=== PATIENT | female | born 1935 | race Caucasian/White ===

== ENCOUNTER 2018-03-23 19:24 | Inpatient (IN) ==
--- NOTE | 2018-03-23 19:42 | ED ---
HPI General Chief Complaint: Fall Stated Complaint: fall Time Seen by Provider: 03/23/18 19:33 Source: patient Mode of arrival: ambulatory Limitations: no limitations History of Present Illness HPI Narrative: 82 YO F with PMH of HTN, HLD, osteoporosis presents to the ED via EMS after falling from a step ladder. Patient states that she was one step above the floor, lost her balance and fell on her left hip on the tile floor. She denies hitting her head or LOC. She takes an aspirin daily. On presentation she endorses 3/10 pain in the left groin. Sharp in quality, worsened by motion, improved by immobilization. The patient received 4 mg Morphine by EMS before arrival. Related Data Home Medications Medication Instructions Recorded Confirmed amlodipine 5 mg PO DAILY 03/23/18 03/23/18 aspirin 81 mg PO DAILY 03/23/18 03/23/18 atorvastatin 10 mg PO DAILY 03/23/18 03/23/18 calcium carbonate-vitamin D3 500 mg PO DAILY 03/23/18 03/23/18 [Calcium 500 + D] levothyroxine 88 mcg PO DAILY 03/23/18 03/23/18 metoprolol tartrate 12.5 mg PO DAILY 03/23/18 03/23/18 Allergies Allergy/AdvReac Type Severity Reaction Status Date / Time No Known Allergies Allergy Verified 03/23/18 19:31 Review of Systems ROS: all other systems reviewed are negative PMFSH Social History Social History Substance History: No History of Abuse Second Hand Smoke Exposure: Yes Smoking Status: Current every day smoker Tobacco Type: Cigarettes How Often Do You Have a Drink Containing Alcohol: 2 to 3 times a week Recent Travel in [facility] within the Last 8 Weeks: No Recent Out of Country Travel within the Last 8 Weeks: No Exam Narrative Exam Narrative: GENERAL: Well-nourished, well-developed white female laying on her right side in the stretcher in no acute distress. SKIN: Focused skin assessment warm/dry. HEAD: Atraumatic. Normocephalic. EYES: Pupils equal and round. No scleral icterus. No injection or drainage. ENT: No nasal bleeding or discharge. Mucous membranes pink and moist. NECK: Trachea midline. No JVD. CARDIOVASCULAR: Regular rate and rhythm. No murmur appreciated. RESPIRATORY: No accessory muscle use. Clear to auscultation. Breath sounds equal bilaterally. GASTROINTESTINAL: Abdomen soft, non-tender, nondistended. Hepatic and splenic margins not palpable. MUSCULOSKELETAL: No obvious deformities. No clubbing. No cyanosis. No edema. FOCUSED LEFT LOWER EXTREMITY EXAM: 2+ DP pulse. Tender to palpation in the anterolateral aspect of the hip. Leg is slightly foreshortened. No external rotation. Patient is able to wiggle the toes and flex and extend the ankle. Neurovascular intact distally. NEUROLOGICAL: Awake and alert. No obvious cranial nerve deficits. Motor grossly within normal limits. Normal speech. PSYCHIATRIC: Appropriate mood and affect; insight and judgment normal. Course Initial Documented Vital Signs Pulse Rate 59 L 03/23/18 19:32 Respiratory Rate 16 03/23/18 19:32 Blood Pressure 186/72 H 03/23/18 19:32 Pulse Oximetry 100 03/23/18 19:32 Last Documented Vital Signs Pulse Rate 66 03/23/18 22:04 Respiratory Rate 18 03/23/18 22:04 Blood Pressure 162/70 H 03/23/18 22:04 Pulse Oximetry 95 03/23/18 22:04 Medical Decision Making [facility] Narrative Medical decision making narrative: 82-year-old female with PMH of HTN, HLD, osteoporosis presents to the ED by EMS after fall from the first step on a ladder. Patient states that she fell onto the left hip, denies hitting her head or loss of consciousness. On exam she is lying on the right side with her left hip slightly flexed. She has tenderness to palpation of the anterior lateral aspect of the hip. Neurovascular intact distally. X-ray reveals comminuted intertrochanteric fracture with varus angulation. Basic lab work ordered and pending. Dunne catheter was placed. Patient was placed in Kaba's traction. I spoke with Dr. Ruvalcaba, who plans surgery tomorrow. I discussed the results and plan with the patient and her family who are agreeable to care plan. I spoke with Dr. Baer who agrees to accept the patient to the medicine service. Please see orthopedic and medicine notes for disposition Medical Screen Exam Complete: Yes Emergency Medical Condition: Yes Differential Diagnosis Differential Diagnosis: Hip fracture versus dislocation versus fall from standing versus other Lab Data Result diagrams: 03/23/18 20:34 03/23/18 20:34 Lab Results 03/23/18 03/23/18 03/23/18 Range/Units 20:34 20:34 20:34 WBC 16.7 H (4.0-11.0) th/mm3 RBC 3.61 L (4.00-5.30) mil/mm3 Hgb 11.5 L (11.6-15.3) gm/dL Hct 33.9 L (35.0-46.0) % MCV 94.1 (80.0-100.0) fL MCH 32.0 (27.0-34.0) pg MCHC 34.0 (32.0-36.0) % RDW 13.0 (11.6-17.2) % Plt Count 234 (150-450) th/mm3 MPV 8.7 (7.0-11.0) fL Prelim Diff (Auto) Slide review pending Neut % (Auto) 86.1 H (16.0-70.0) % Lymph % (Auto) 8.1 L (9.0-44.0) % [place] % (Auto) 5.5 (0.0-8.0) % Eos % (Auto) 0.1 (0.0-4.0) % Baso % (Auto) 0.2 (0.0-2.0) % Neut # (Auto) 14.4 H (1.8-7.7) th/mm3 Lymph # (Auto) 1.4 (1.0-4.8) th/mm3 [place] # (Auto) 0.9 (0.0-0.9) th/mm3 Eos # (Auto) 0.0 (0.0-0.4) th/mm3 Baso # (Auto) 0.0 (0.0-0.2) th/mm3 WBC Differential Manual diff final Seg Neuts % (Manual) 78 H (16-70) % Band Neuts % (Manual) 8 H (0-6) % Lymphocytes % (Manual) 8 L (9-44) % Monocytes % (Manual) 6 (0-8) % Abs Neuts (Manual) 14.4 H (1.8-7.7) th/mm3 Differential Comment . Platelet Estimate Normal (Normal) Platelet Morphology Normal (Normal) RBC Morphology Normal (Normal) PT 11.4 (9.8-11.6) sec INR 1.1 Ratio APTT 25.5 (23.4-31.7) sec Sodium 139 (136-145) meq/L Potassium 3.7 (3.5-5.1) meq/L Chloride 103 (98-107) meq/L Carbon Dioxide 26.9 (21.0-32.0) meq/L Anion Gap 9 (5-15) meq/L BUN 17 (7-18) mg/dL Creatinine 0.74 (0.50-1.00) mg/dL Estimated GFR 75 L (>89) mL/min Random Glucose 113 H (74-106) mg/dL Calcium 10.1 (8.5-10.1) mg/dL Total Bilirubin 0.6 (0.2-1.0) mg/dL AST 23 (15-37) U/L ALT 22 (10-53) U/L Alkaline Phosphatase 106 (45-117) U/L Total Protein 6.9 (6.4-8.2) g/dL Albumin 3.9 (3.4-5.0) g/dL Urine Color (Yellw/Straw) Urine Clarity (Clear) Urine pH (5.0-8.5) Ur Specific [place] [employer] (1.002-1.035) Urine Protein (Neg-Trace) mg/dL Urine Glucose (UA) (Negative) mg/dL Urine Ketones (Negative) mg/dL Urine Occult Blood (Negative) Urine Nitrate (Negative) Urine Bilirubin (Negative) Urine Urobilinogen (Less than 2) mg/dL Ur Leukocyte Esterase (Negative) Urine RBC (0-3) /hpf Amorphous Sediment (None) /hpf Urine Bacteria (None) /hpf Urine Mucus (Occasional) /lpf Ur Microscopic Review Blood Type Blood Type Recheck Antibody Screen 03/23/18 03/23/18 Range/Units 20:34 21:17 WBC (4.0-11.0) th/mm3 RBC (4.00-5.30) mil/mm3 Hgb (11.6-15.3) gm/dL Hct (35.0-46.0) % MCV (80.0-100.0) fL MCH (27.0-34.0) pg MCHC (32.0-36.0) % RDW (11.6-17.2) % Plt Count (150-450) th/mm3 MPV (7.0-11.0) fL Prelim Diff (Auto) Neut % (Auto) (16.0-70.0) % Lymph % (Auto) (9.0-44.0) % [place] % (Auto) (0.0-8.0) % Eos % (Auto) (0.0-4.0) % Baso % (Auto) (0.0-2.0) % Neut # (Auto) (1.8-7.7) th/mm3 Lymph # (Auto) (1.0-4.8) th/mm3 [place] # (Auto) (0.0-0.9) th/mm3 Eos # (Auto) (0.0-0.4) th/mm3 Baso # (Auto) (0.0-0.2) th/mm3 WBC Differential Seg Neuts % (Manual) (16-70) % Band Neuts % (Manual) (0-6) % Lymphocytes % (Manual) (9-44) % Monocytes % (Manual) (0-8) % Abs Neuts (Manual) (1.8-7.7) th/mm3 Differential Comment Platelet Estimate (Normal) Platelet Morphology (Normal) RBC Morphology (Normal) PT (9.8-11.6) sec INR Ratio APTT (23.4-31.7) sec Sodium (136-145) meq/L Potassium (3.5-5.1) meq/L Chloride (98-107) meq/L Carbon Dioxide (21.0-32.0) meq/L Anion Gap (5-15) meq/L BUN (7-18) mg/dL Creatinine (0.50-1.00) mg/dL Estimated GFR (>89) mL/min Random Glucose (74-106) mg/dL Calcium (8.5-10.1) mg/dL Total Bilirubin (0.2-1.0) mg/dL AST (15-37) U/L ALT (10-53) U/L Alkaline Phosphatase (45-117) U/L Total Protein (6.4-8.2) g/dL Albumin (3.4-5.0) g/dL Urine Color Yellow (Yellw/Straw) Urine Clarity Cloudy H (Clear) Urine pH 7.0 (5.0-8.5) Ur Specific [place] [employer] 1.011 (1.002-1.035) Urine Protein Negative (Neg-Trace) mg/dL Urine Glucose (UA) Negative (Negative) mg/dL Urine Ketones Trace H (Negative) mg/dL Urine Occult Blood Negative (Negative) Urine Nitrate Negative (Negative) Urine Bilirubin Negative (Negative) Urine Urobilinogen Less than 2 (Less than 2) mg/dL Ur Leukocyte Esterase Negative (Negative) Urine RBC 1 (0-3) /hpf Amorphous Sediment Occasional H (None) /hpf Urine Bacteria Occasional H (None) /hpf Urine Mucus Few H (Occasional) /lpf Ur Microscopic Review Not Reportable Blood Type O Positive Blood Type Recheck Required Antibody Screen Negative Imaging Data Radiologist's impression: Hip X-Ray 03/23/18 19:37 CONCLUSION: Comminuted intratrochanteric fracture with varus angulation. Chest X-Ray 03/23/18 20:07 CONCLUSION: Interface in the upper lateral left chest probably represents a skinfold. Recommend performing an expiratory view of the chest to exclude pneumothorax. Chest X-Ray 03/23/18 20:56 CONCLUSION: No evidence of pneumothorax. ECG Data Attestation: I personally reviewed and interpreted this ECG as follows: Interpretation: EKG rate 59, sinus bradycardia. HI interval 151, QRS 92, QTc [address] changes. Reviewed by Dr. Dumont. Discharge Plan Discharge Disposition Patient Disposition: 30 Still Patient Physicians Team ED Provider: Param Dumont ED Midlevel Provider: Erika Nails Primary Care Provider: Josiah Bush Attending Provider: India Baer Other Providers: Enedina Ruvalcaba ; Joaquin Nuñez Discharge Interventions Interventions: Vital Signs Last Done: 03/23/18 22:04 Status ED Status: Admitted Patient
[2018-03-23] MEDS ORDERED: Morphine Sulfate Inj 8 MG/ML Vial IV.PUSH ONE (19:58)
--- NOTE | 2018-03-23 20:06 | XR ---
EXAM DATE: 03/23/2018 8:02 PM EST AGE/SEX: 82 years / Female INDICATIONS: Trauma. Pain. Patient fell at home today. Pain left hip. CLINICAL DATA: This is the patient's initial encounter. Patient reports that signs and symptoms have been present for 1 day and indicates a pain score of 10/10. MEDICAL/SURGICAL HISTORY: Alzheimer's disease. Non-responsive. COMPARISON: No prior exams available for comparison. FINDINGS: There is an intertrochanteric fracture with varus angulation and a butterfly fragment arising from th e lesser trochanter. The bony acetabulum appears grossly intact. Femoral head is situated within the acetabulum. CONCLUSION: Comminuted intratrochanteric fracture with varus angulation. Electronically signed by: Jak Duran MD 03/23/2018 8:05 PM EST
[2018-03-23] MEDS ORDERED: Morphine Inj 4 MG/ML Vial IV.PUSH ONE (20:07)
--- NOTE | 2018-03-23 20:38 | XR ---
EXAM DATE: 03/23/2018 8:32 PM EST AGE/SEX: 82 years / Female INDICATIONS: Pre op. Evaluate for pneumothorax, pneumonia, or any communicable diseases. CLINICAL DATA: This is the patient's initial encounter. Patient reports that signs and symptoms have been present for 1 day and indicates a pain score of 0/10. MEDICAL/SURGICAL HISTORY: None. None. COMPARISON: No prior exams available for comparison. FINDINGS: A single AP view of the chest demonstrates the lungs to be symmetrically aerated without evidence of mass, infiltrate or effusion. There is a vertical curvilinear interface projecting over the lateral l eft upper chest with lung markings peripheral to the interface suggesting a skin fold. The cardiomedi astinal contours are unremarkable. Osseous structures are intact. CONCLUSION: Interface in the upper lateral left chest probably represents a skinfold. Recommend performing an exp iratory view of the chest to exclude pneumothorax. Electronically signed by: Jak Duran MD 03/23/2018 8:36 PM EST
[2018-03-23 21:08] LABS: Baso % (Auto) 0.2 % (0.0-2.0); Eos % (Auto) 0.1 % (0.0-4.0); Hematocrit 33.9 % (35.0-46.0); Hemoglobin 11.5 gm/dL (11.6-15.3); Lymph # (Auto) 1.4 th/mm3 (1.0-4.8); Lymph % (Auto) 8.1 % (9.0-44.0); Mean Corpuscular Volume 94.1 fL (80.0-100.0); Mean Platelet Volume 8.7 fL (7.0-11.0); Mono # (Auto) 0.9 th/mm3 (0.0-0.9); Mono % (Auto) 5.5 % (0.0-8.0); Neut # (Auto) 14.4 th/mm3 (1.8-7.7); Neut % (Auto) 86.1 % (16.0-70.0); Platelet Count 234 th/mm3 (150-450); Red Blood Count 3.61 mil/mm3 (4.00-5.30); White Blood Count 16.7 th/mm3 (4.0-11.0)
[2018-03-23 21:20] LABS: Activated Partial Thrombo Time 25.5 sec (23.4-31.7); INR 1.1 Ratio; Prothrombin Time 11.4 sec (9.8-11.6)
[2018-03-23 21:33] LABS: Albumin 3.9 g/dL (3.4-5.0); Anion Gap 9 meq/L (5-15); Aspartate Aminotransferase 23 U/L (15-37); Blood Urea Nitrogen 17 mg/dL (7-18); Calcium 10.1 mg/dL (8.5-10.1); Carbon Dioxide 26.9 meq/L (21.0-32.0); Chloride 103 meq/L (98-107); Glomerular Filtration Rate 75 mL/min (>89); Glucose,Random 113 mg/dL (74-106); Potassium 3.7 meq/L (3.5-5.1); Sodium 139 meq/L (136-145)
[2018-03-23 21:35] LABS: Alanine Aminotransferase 22 U/L (10-53)
[2018-03-23 21:36] LABS: Lymphocytes 8 % (9-44); Monocytes 6 % (0-8); Platelet Estimate Normal (Normal); Platelet Morphology Normal (Normal); RBC Morphology Normal (Normal)
[2018-03-23 21:37] LABS: Alkaline Phosphatase 106 U/L (45-117); Total Protein 6.9 g/dL (6.4-8.2)
--- NOTE | 2018-03-23 21:45 | XR ---
EXAM DATE: 03/23/2018 9:42 PM EST AGE/SEX: 82 years / Female INDICATIONS: Evaluate for pneumonia, pneumothorax, or communicable disease. Pre-op hip surgery. CLINICAL DATA: This is the patient's subsequent encounter. Patient reports that signs and symptoms h ave been present for 1 day and indicates a pain score of 0/10. MEDICAL/SURGICAL HISTORY: . Leaky heart valve. Smoker. None. COMPARISON: [facility], CHEST 1V SINGLE AP, 03/23/2018. . FINDINGS: Mild patient rotation towards the left. Lungs are symmetrically aerated. The examination is performed in expiration and there is no evidence of pneumothorax. The heart is normal in size. Both hemidiaphr agms well delineated. CONCLUSION: No evidence of pneumothorax. Electronically signed by: Jak Duran MD 03/23/2018 9:44 PM EST
[2018-03-23 21:56] LABS: Amorphous Sediment,Urine Occasional /hpf; Bacteria,Urine Occasional /hpf; Bilirubin,Urine Negative (Negative); Clarity,Urine Cloudy (Clear); Color,Urine Yellow (Yellw/Straw); Glucose,Urine (UA) Negative (Negative); Leukocyte Esterase,Urine Negative (Negative); Mucus,Urine Few /lpf (Occasional); Nitrite,Urine Negative (Negative); Specific Gravity,Urine 1.011 (1.002-1.035)
[2018-03-23] MEDS ORDERED: ceFAZolin 2 GM Premix Inj 2 GM/50 ML PIGGYBACK IV.SIG PRN (23:09)
--- NOTE | 2018-03-23 23:19 | P.CONOP ---
[facility] Orthopedics Consult Note - [facility] Consult date: 03/23/18 Requesting physician: Param Dumont Chief complaint: Left Hip Fracture Narrative: 82 year old female who fell from a step ladder while trying to hang curtains earlier today, landing on the left hip. She was unable to bear weight on the leg and was brought to the ED where imaging revealed an intertrochanteric femur fracture. She denies other injury. Pain is improved with morphine and worse with any movement of the hip. She denies numbness or tingling. Review of Systems All other systems reviewed negative except as stated in HPI PMFSH - History History Provided By: Patient - Medical History Medical History: Medical History (Last Reviewed 03/23/18 @ 23:14 by Enedina Ruvalcaba MD) Aortic regurgitation Arthritis Emphysema of lung Hypercholesteremia Hypothyroidism Osteoporosis Uterine prolapse - Social History I have reviewed the patient's Social History: Yes - Tobacco History Second Hand Smoke Exposure: Yes Tobacco Use In Past 30 Days: Yes Smoking Status: Current every day smoker Tobacco Type: Cigarettes - Alcohol History How Often Do You Have a Drink Containing Alcohol: 2 to 3 times a week - Substance Use History Substance History: No History of Abuse - Travel History Recent Travel in the [place] Within the Last 8 Weeks: No Recent Travel Out of the Country Within the Last 8 Weeks: No - Immunization History Tetanus Immunization: >5 Years Medications and Allergies Active Medications: Active Medications Cefazolin Sodium/Dextrose (Ancef 2 Gm Premix Inj) 2 gm in 50 mls @ 100 mls/hr IV.SIG HUMAN RESOURCES TEMP PRN PRN Reason: surgical prophylaxis Sodium Chloride (Ns Flush) 2 ml IV.FLUSH UNSCH PRN PRN Reason: FLUSH AFTER USING IV ACCESS Allergies Allergy/AdvReac Type Severity Reaction Status Date / Time No Known Allergies Allergy Verified 03/23/18 19:31 Home Medications Medication Instructions Recorded Confirmed Type amlodipine 5 mg PO DAILY 03/23/18 03/23/18 History aspirin 81 mg PO DAILY 03/23/18 03/23/18 History atorvastatin 10 mg PO DAILY 03/23/18 03/23/18 History calcium carbonate-vitamin D3 500 mg PO DAILY 03/23/18 03/23/18 History [Calcium 500 + D] levothyroxine 88 mcg PO DAILY 03/23/18 03/23/18 History metoprolol tartrate 12.5 mg PO DAILY 03/23/18 03/23/18 History Exam Vital signs: Vital Signs 03/23/18 19:32 03/23/18 19:37 03/23/18 22:04 Pulse Rate 59 L 58 L 66 Respiratory Rate 16 16 18 Blood Pressure 186/72 H 186/72 H 162/70 H Pulse Oximetry 100 100 95 Intake & Output 03/23/18 03/23/18 03/24/18 06:59 18:59 06:59 Weight 48.988 kg - Constitutional no acute distress - Routine HEENT Exam Head: Present: normocephalic, atraumatic - Routine Neck Exam Present: supple - Routine Respiratory Exam Absent: accessory muscle use - Routine Cardiovascular Exam Present: RRR - Routine Extremities Exam Comments: Left leg in sorensen's traction. Slightly tender to palpation of the left hip. No other areas of tenderness. She is able to wiggle the toes and has intact sensation throughout. Palpable DP pulse. Other extremities unremarkable. - Routine Neurological Exam Present: alert, oriented X3 Results - Labs Result Diagrams: 03/23/18 20:34 03/23/18 20:34 Labs: Laboratory Results - last 24 hr 03/23/18 03/23/18 03/23/18 20:34 20:34 20:34 WBC 16.7 H RBC 3.61 L Hgb 11.5 L Hct 33.9 L MCV 94.1 MCH 32.0 MCHC 34.0 RDW 13.0 Plt Count 234 MPV 8.7 Prelim Diff (Auto) Slide review pending Neut % (Auto) 86.1 H Lymph % (Auto) 8.1 L [place] % (Auto) 5.5 Eos % (Auto) 0.1 Baso % (Auto) 0.2 Neut # (Auto) 14.4 H Lymph # (Auto) 1.4 [place] # (Auto) 0.9 Eos # (Auto) 0.0 Baso # (Auto) 0.0 WBC Differential Manual diff final Seg Neuts % (Manual) 78 H Band Neuts % (Manual) 8 H Lymphocytes % (Manual) 8 L Monocytes % (Manual) 6 Abs Neuts (Manual) 14.4 H Differential Comment . Platelet Estimate Normal Platelet Morphology Normal RBC Morphology Normal PT 11.4 INR 1.1 APTT 25.5 Sodium 139 Potassium 3.7 Chloride 103 Carbon Dioxide 26.9 Anion Gap 9 BUN 17 Creatinine 0.74 Estimated GFR 75 L Random Glucose 113 H Calcium 10.1 Total Bilirubin 0.6 AST 23 ALT 22 Alkaline Phosphatase 106 Total Protein 6.9 Albumin 3.9 Urine Color Urine Clarity Urine pH Ur Specific [place] Urine Protein Urine Glucose (UA) Urine Ketones Urine Occult Blood Urine Nitrate Urine Bilirubin Urine Urobilinogen Ur Leukocyte Esterase Urine RBC Amorphous Sediment Urine Bacteria Urine Mucus Ur Microscopic Review Blood Type Blood Type Recheck Antibody Screen 03/23/18 03/23/18 20:34 21:17 WBC RBC Hgb Hct MCV MCH MCHC RDW Plt Count MPV Prelim Diff (Auto) Neut % (Auto) Lymph % (Auto) [place] % (Auto) Eos % (Auto) Baso % (Auto) Neut # (Auto) Lymph # (Auto) [place] # (Auto) Eos # (Auto) Baso # (Auto) WBC Differential Seg Neuts % (Manual) Band Neuts % (Manual) Lymphocytes % (Manual) Monocytes % (Manual) Abs Neuts (Manual) Differential Comment Platelet Estimate Platelet Morphology RBC Morphology PT INR APTT Sodium Potassium Chloride Carbon Dioxide Anion Gap BUN Creatinine Estimated GFR Random Glucose Calcium Total Bilirubin AST ALT Alkaline Phosphatase Total Protein Albumin Urine Color Yellow Urine Clarity Cloudy H Urine pH 7.0 Ur Specific [place] 1.011 Urine Protein Negative Urine Glucose (UA) Negative Urine Ketones Trace H Urine Occult Blood Negative Urine Nitrate Negative Urine Bilirubin Negative Urine Urobilinogen Less than 2 Ur Leukocyte Esterase Negative Urine RBC 1 Amorphous Sediment Occasional H Urine Bacteria Occasional H Urine Mucus Few H Ur Microscopic Review Not Reportable Blood Type O Positive Blood Type Recheck Required Antibody Screen Negative - Diagnostic results Imaging: Impressions Hip X-Ray 03/23/18 19:37 CONCLUSION: Comminuted intratrochanteric fracture with varus angulation. Chest X-Ray 03/23/18 20:07 CONCLUSION: Interface in the upper lateral left chest probably represents a skinfold. Recommend performing an expiratory view of the chest to exclude pneumothorax. Chest X-Ray 03/23/18 20:56 CONCLUSION: No evidence of pneumothorax. Assessment and Plan - Assessment and Plan 82 year old female with left intertrochanteric femur fracture Plan: -To OR for CMN left hip tomorrow -Risks, benefits and alternatives were discussed with the patient and family and they agree to proceed with surgical fixation -NPO after midnight
[2018-03-24] MEDS ORDERED: Bisacodyl 10 MG Supp RECTAL PRN (00:47)
[2018-03-24] MEDS ORDERED: Acetaminophen 325 MG Tablet PO PRN (00:47)
[2018-03-24] MEDS ORDERED: Morphine Sulfate Inj 2 MG/ML Vial IV.PUSH PRN (01:02)
[2018-03-24] MEDS: Sod Chloride 0.9% Inj 1,000 ML IV.CONT SCH ×2 (01:32→15:11)
[2018-03-24] MEDS ORDERED: Sodium Chloride 0.9% 2 ML Flush PRN IV.FLUSH (02:15)
[2018-03-24] MEDS ORDERED: Metoprolol Tartrate 25 MG Tablet PO ONE ×2 (03:45→11:45)
[2018-03-24] MEDS ORDERED: Chlorhexidine Gluconate 2% 1 Pack (2 Cloths) TOPICAL ONE ×2 (03:45→11:45)
[2018-03-24] MEDS ORDERED: Sodium Chlor 0.9% Inj 500 ML IV.SIG SCH (04:00)
--- NOTE | 2018-03-24 04:31 | P.HP ---
History of Present Illness Service: [facility] Primary Care Physician: Josiah Bush MD History of Present Illness: 82-year-old female with a past medical history significant for hypothyroidism, hypertension, hyperlipidemia and COPD presents to the emergency department for evaluation of a fall. The patient reports that she was standing on a step stool when she slipped and fell and landed on her hip. She denies any head trauma or loss of consciousness. No syncopal event. No chest pain or shortness of breath. No abdominal pain. No nausea/vomiting/diarrhea. No focal neurologic deficits. No fever/chills. Inpatient Certification: I certify that the inpatient services were ordered in accordance with Medicare regulations governing the order. This includes certification that hospital inpatient services are reasonable and necessary and in the case of services not specified as inpatient-only under 42 CFR 419.22(n), that they are appropriately provided as inpatient services in accordance to with the 2-midnight benchmark under 43 CFR 412.3(e) Estimated Total Length of Stay (Days): 3 Plans for Post Hospital Care: Not yet determined Review of Systems All other systems reviewed negative except as stated in HPI [facility] - History History Provided By: Patient - Medical History Medical History: Medical History (Last Reviewed 03/24/18 @ 04:27 by India Baer MD) Aortic regurgitation Arthritis Emphysema of lung Hypercholesteremia Hypothyroidism Osteoporosis Uterine prolapse - Surgical History Surgical History: Surgical History (Last Updated 03/24/18 @ 04:27 by India Baer MD) No history of previous surgery - Family History Family History: Family History (Last Updated 03/24/18 @ 04:27 by India Baer MD) Other Family history unknown - Tobacco History Second Hand Smoke Exposure: Yes Tobacco Use In Past 30 Days: Yes Smoking Status: Current every day smoker Tobacco Type: Cigarettes - Alcohol History How Often Do You Have a Drink Containing Alcohol: 2 to 3 times a week - Substance Use History Substance History: No History of Abuse - Travel History Recent Travel in the [place] Within the Last 8 Weeks: No Recent Travel Out of the Country Within the Last 8 Weeks: No - Immunization History Tetanus Immunization: >5 Years Medications and Allergies Active Medications: Active Medications Acetaminophen (Tylenol) 650 mg PO Q4H PRN PRN Reason: Temp > 100.4 Amlodipine Besylate (Norvasc) 5 mg PO DAILY [facility] Atorvastatin Calcium (Lipitor) 10 mg PO DAILY [facility] Bisacodyl (Dulcolax Supp) 10 mg RECTAL DAILY PRN PRN Reason: SEVERE CONSITIPATION Calcium/Vitamin D (Oscal With D 250/125 Mg) 2 tab PO DAILY [facility] Cefazolin Sodium/Dextrose (Ancef 2 Gm Premix Inj) 2 gm in 50 mls @ 100 mls/hr IV.SIG LANGUAGE TUTOR PRN PRN Reason: surgical prophylaxis Sodium Chloride (Ns Inj) 1,000 mls @ 75 mls/hr IV.CONT .[id number] [facility] Last Admin: 03/24/18 01:32 Dose: 75 mls/hr Lactated Ringer's (Lr 1000 Ml Inj) 1,000 mls @ 30 mls/hr IV.SIG .Q24H [facility] Stop: 03/25/18 03:44 Sodium Chloride (Ns Inj) 500 mls @ 30 mls/hr IV.SIG .Q10H [facility] Levothyroxine Sodium (Synthroid) 88 mcg PO DAILY@0600 [facility] Metoprolol Tartrate (Lopressor) 12.5 mg PO DAILY [facility] Morphine Sulfate (Morphine Inj) 2 mg IV.PUSH Q3H PRN PRN Reason: pain > 4 Ondansetron HCl (Zofran Inj) 4 mg IV.PUSH Q6H PRN PRN Reason: NAUSEA OR VOMITING Sodium Chloride (Ns Flush) 2 ml IV.FLUSH BID [facility] Sodium Chloride (Ns Flush) 2 ml IV.FLUSH PRN PRN PRN Reason: FLUSH AFTER USING IV ACCESS Allergies Allergy/AdvReac Type Severity Reaction Status Date / Time No Known Allergies Allergy Verified 03/23/18 19:31 Home Medications Medication Instructions Recorded Confirmed Type amlodipine 5 mg PO DAILY 03/23/18 03/23/18 History aspirin 81 mg PO DAILY 03/23/18 03/23/18 History atorvastatin 10 mg PO DAILY 03/23/18 03/23/18 History calcium carbonate-vitamin D3 500 mg PO DAILY 03/23/18 03/23/18 History [Calcium 500 + D] levothyroxine 88 mcg PO DAILY 03/23/18 03/23/18 History metoprolol tartrate 12.5 mg PO DAILY 03/23/18 03/23/18 History Exam Vital signs: Vital Signs 03/23/18 19:32 03/23/18 19:37 03/23/18 22:04 Pulse Rate 59 L 58 L 66 Respiratory Rate 16 16 18 Blood Pressure 186/72 H 186/72 H 162/70 H Pulse Oximetry 100 100 95 03/24/18 01:33 Pulse Rate 68 Respiratory Rate 22 Blood Pressure 134/77 Pulse Oximetry 99 Intake & Output 03/23/18 03/23/18 03/24/18 06:59 18:59 06:59 Weight 48.988 kg Narrative: Gen.: No acute distress Head: Normocephalic. Atraumatic. EENT: Pupils equal round and reactive to light. Nose without drainage. Airway intact. Throat without injection. Cardiovascular: Regular rate and rhythm. No murmurs, rubs or gallops. Respiratory: Lungs clear to auscultation bilaterally. No wheezes or rhonchi. Abdomen: Soft, nontender, nondistended. No peritoneal signs. Musculoskeletal: Left lower extremity in traction, neurovascularly intact. Skin: No obvious rashes or erythema. Neuro: Sensory and motor grossly intact. Cranial nerves II through XII grossly intact. Results - Labs CBC & Chem 7: 03/23/18 20:34 03/23/18 20:34 Labs: Laboratory Results - last 24 hr 03/23/18 03/23/18 03/23/18 20:34 20:34 20:34 WBC 16.7 H RBC 3.61 L Hgb 11.5 L Hct 33.9 L MCV 94.1 MCH 32.0 MCHC 34.0 RDW 13.0 Plt Count 234 MPV 8.7 Prelim Diff (Auto) Slide review pending Neut % (Auto) 86.1 H Lymph % (Auto) 8.1 L [place] % (Auto) 5.5 Eos % (Auto) 0.1 Baso % (Auto) 0.2 Neut # (Auto) 14.4 H Lymph # (Auto) 1.4 [place] # (Auto) 0.9 Eos # (Auto) 0.0 Baso # (Auto) 0.0 WBC Differential Manual diff final Seg Neuts % (Manual) 78 H Band Neuts % (Manual) 8 H Lymphocytes % (Manual) 8 L Monocytes % (Manual) 6 Abs Neuts (Manual) 14.4 H Differential Comment . Platelet Estimate Normal Platelet Morphology Normal RBC Morphology Normal PT 11.4 INR 1.1 APTT 25.5 Sodium 139 Potassium 3.7 Chloride 103 Carbon Dioxide 26.9 Anion Gap 9 BUN 17 Creatinine 0.74 Estimated GFR 75 L Random Glucose 113 H Calcium 10.1 Total Bilirubin 0.6 AST 23 ALT 22 Alkaline Phosphatase 106 Total Protein 6.9 Albumin 3.9 Urine Color Urine Clarity Urine pH Ur Specific [place] Urine Protein Urine Glucose (UA) Urine Ketones Urine Occult Blood Urine Nitrate Urine Bilirubin Urine Urobilinogen Ur Leukocyte Esterase Urine RBC Amorphous Sediment Urine Bacteria Urine Mucus Ur Microscopic Review Blood Type Blood Type Recheck Antibody Screen 03/23/18 03/23/18 20:34 21:17 WBC RBC Hgb Hct MCV MCH MCHC RDW Plt Count MPV Prelim Diff (Auto) Neut % (Auto) Lymph % (Auto) [place] % (Auto) Eos % (Auto) Baso % (Auto) Neut # (Auto) Lymph # (Auto) [place] # (Auto) Eos # (Auto) Baso # (Auto) WBC Differential Seg Neuts % (Manual) Band Neuts % (Manual) Lymphocytes % (Manual) Monocytes % (Manual) Abs Neuts (Manual) Differential Comment Platelet Estimate Platelet Morphology RBC Morphology PT INR APTT Sodium Potassium Chloride Carbon Dioxide Anion Gap BUN Creatinine Estimated GFR Random Glucose Calcium Total Bilirubin AST ALT Alkaline Phosphatase Total Protein Albumin Urine Color Yellow Urine Clarity Cloudy H Urine pH 7.0 Ur Specific [place] 1.011 Urine Protein Negative Urine Glucose (UA) Negative Urine Ketones Trace H Urine Occult Blood Negative Urine Nitrate Negative Urine Bilirubin Negative Urine Urobilinogen Less than 2 Ur Leukocyte Esterase Negative Urine RBC 1 Amorphous Sediment Occasional H Urine Bacteria Occasional H Urine Mucus Few H Ur Microscopic Review Not Reportable Blood Type O Positive Blood Type Recheck Required Antibody Screen Negative - Imaging Impressions Hip X-Ray 03/23/18 19:37 CONCLUSION: Comminuted intratrochanteric fracture with varus angulation. Chest X-Ray 03/23/18 20:07 CONCLUSION: Interface in the upper lateral left chest probably represents a skinfold. Recommend performing an expiratory view of the chest to exclude pneumothorax. Chest X-Ray 03/23/18 20:56 CONCLUSION: No evidence of pneumothorax. Caprini VTE Risk Assessment Caprini VTE Risk Assessment: Moderate/High Risk (score >= 2) Caprini Risk Assessment Model: Point Value = 1 Point Value = 2 Point Value = 3 Point Value = 5 Age 41-60 Minor surgery BMI > 25 kg/m2 Swollen legs Varicose veins or History of unexplained or recurrent spontaneous Oral contraceptives or hormone replacement Sepsis (< 1 month) Serious lung disease, including pneumonia (< 1 month) Abnormal pulmonary function Acute myocardial infarction Congestive heart failure (< 1 month) History of inflammatory bowel disease Medical patient at bed rest Age 61-74 Arthroscopic surgery Major open surgery (> 45 min) Laparoscopic surgery (> 45 min) Malignancy Confined to bed (> 72 hours) Immobilizing plaster cast Central venous access Age >= 75 History of VTE Family history of VTE Factor V Leiden Prothrombin 25304H Lupus anticoagulant Anticardiolipin antibodies Elevated serum homocysteine Heparin-induced thrombocytopenia Other congenital or acquired thrombophilia Stroke (< 1 month) Elective arthroplasty Hip, pelvis, or leg fracture Acute spinal cord injury (< 1 month) Prophylaxis Regimen: Total Risk Factor Score Risk Level Prophylaxis Regimen 0-1 Low Early ambulation 2 Moderate Order ONE of the following: *Sequential Compression Device (SCD) *Heparin 5000 units SQ BID 3-4 Higher Order ONE of the following medications: *Heparin 5000 units SQ TID *Enoxaparin/Lovenox 40 mg SQ daily (WT < 150 kg, CrCl > 30 mL/min) *Enoxaparin/Lovenox 30 mg SQ daily (WT < 150 kg, CrCl > 10-29 mL/min) *Enoxaparin/Lovenox 30 mg SQ BID (WT < 150 kg, CrCl > 30 mL/min) AND/OR *Sequential Compression Device (SCD) 5 or more Highest Order ONE of the following medications: *Heparin 5000 units SQ TID (Preferred with Epidurals) *Enoxaparin/Lovenox 40 mg SQ daily (WT < 150 kg, CrCl > 30 mL/min) *Enoxaparin/Lovenox 30 mg SQ daily (WT < 150 kg, CrCl > 10-29 mL/min) *Enoxaparin/Lovenox 30 mg SQ BID (WT < 150 kg, CrCl > 30 mL/min) AND *Sequential Compression Device (SCD) Assessment and Plan - Plan Assessment/plan: 1. Left hip fracture Hip x-ray significant for comminuted intertrochanteric fracture of the left hip with varus angulation Orthopedic surgery consulted, plan for surgery later today PT 2. Hypertension/hyperlipidemia Continue home medications 3. Tobacco abuse Nicotine patch FEN N.p.o. Electrolytes: monitor and replete prn Holding pharmacologic anticoagulation operative intervention NS at 75 cc/hour
[2018-03-24] MEDS: Levothyroxine 88 MCG Tablet PO SCH (06:00)
[2018-03-24 06:12] LABS: Baso % (Auto) 0.3 % (0.0-2.0); Eos % (Auto) 0.2 % (0.0-4.0); Hematocrit 29.2 % (35.0-46.0); Hemoglobin 10.1 gm/dL (11.6-15.3); Lymph # (Auto) 1.3 th/mm3 (1.0-4.8); Lymph % (Auto) 11.3 % (9.0-44.0); Mean Corpuscular HGB Conc 34.6 % (32.0-36.0); Mean Corpuscular Hemoglobin 32.6 pg (27.0-34.0); Mean Corpuscular Volume 94.5 fL (80.0-100.0); Mono # (Auto) 1.2 th/mm3 (0.0-0.9); Mono % (Auto) 10.5 % (0.0-8.0); Neut # (Auto) 8.6 th/mm3 (1.8-7.7); Neut % (Auto) 77.7 % (16.0-70.0); Platelet Count 195 th/mm3 (150-450); Red Cell Distribution Width 13.1 % (11.6-17.2); White Blood Count 11.1 th/mm3 (4.0-11.0)
[2018-03-24 06:45] LABS: Carbon Dioxide 28.9 meq/L (21.0-32.0); Potassium 4.1 meq/L (3.5-5.1)
--- NOTE | 2018-03-24 07:32 | P.PNOP ---
Subjective Interval history: s/p fall off of step ladder at home left hip pain. no other complaints Physical Exam Vital signs: Vital Signs 03/23/18 19:32 03/23/18 19:37 03/23/18 22:04 Temperature Pulse Rate 59 L 58 L 66 Respiratory Rate 16 16 18 Blood Pressure 186/72 H 186/72 H 162/70 H Pulse Oximetry 100 100 95 03/24/18 01:33 03/24/18 01:55 03/24/18 04:35 Temperature 98 F 98.9 F Pulse Rate 68 64 68 Respiratory Rate 22 18 Blood Pressure 134/77 145/64 H 122/54 L Pulse Oximetry 99 96 97 Intake & Output 03/23/18 03/24/18 03/24/18 18:59 06:59 18:59 Weight 58.6 kg Narrative: LLE: +bucks traction. nvi - Urinary Catheter Management Indwelling Urethral Catheter Cath placed during this visit: yes Reason for continuing: Hourly intake/output Insertion date: 03/23/18 Insertion time: 21:07 Results - Labs CBC & Chem 7: 03/24/18 05:19 03/24/18 05:19 Laboratory Results - last 24 hr 03/23/18 03/23/18 03/23/18 20:34 20:34 20:34 WBC 16.7 H RBC 3.61 L Hgb 11.5 L Hct 33.9 L MCV 94.1 MCH 32.0 MCHC 34.0 RDW 13.0 Plt Count 234 MPV 8.7 Prelim Diff (Auto) Slide review pending Neut % (Auto) 86.1 H Lymph % (Auto) 8.1 L [place] % (Auto) 5.5 Eos % (Auto) 0.1 Baso % (Auto) 0.2 Neut # (Auto) 14.4 H Lymph # (Auto) 1.4 [place] # (Auto) 0.9 Eos # (Auto) 0.0 Baso # (Auto) 0.0 WBC Differential Manual diff final Seg Neuts % (Manual) 78 H Band Neuts % (Manual) 8 H Lymphocytes % (Manual) 8 L Monocytes % (Manual) 6 Abs Neuts (Manual) 14.4 H Differential Comment . Platelet Estimate Normal Platelet Morphology Normal RBC Morphology Normal PT 11.4 INR 1.1 APTT 25.5 Sodium 139 Potassium 3.7 Chloride 103 Carbon Dioxide 26.9 Anion Gap 9 BUN 17 Creatinine 0.74 Estimated GFR 75 L Random Glucose 113 H Calcium 10.1 Total Bilirubin 0.6 AST 23 ALT 22 Alkaline Phosphatase 106 Total Protein 6.9 Albumin 3.9 Urine Color Urine Clarity Urine pH Ur Specific [place] Urine Protein Urine Glucose (UA) Urine Ketones Urine Occult Blood Urine Nitrate Urine Bilirubin Urine Urobilinogen Ur Leukocyte Esterase Urine RBC Amorphous Sediment Urine Bacteria Urine Mucus Ur Microscopic Review Blood Type Blood Type Recheck Antibody Screen 03/23/18 03/23/18 03/24/18 20:34 21:17 05:19 WBC 11.1 H RBC 3.10 L Hgb 10.1 L Hct 29.2 L MCV 94.5 MCH 32.6 MCHC 34.6 RDW 13.1 Plt Count 195 MPV 8.0 Prelim Diff (Auto) Neut % (Auto) 77.7 H Lymph % (Auto) 11.3 [place] % (Auto) 10.5 H Eos % (Auto) 0.2 Baso % (Auto) 0.3 Neut # (Auto) 8.6 H Lymph # (Auto) 1.3 [place] # (Auto) 1.2 H Eos # (Auto) 0.0 Baso # (Auto) 0.0 WBC Differential . Seg Neuts % (Manual) Band Neuts % (Manual) Lymphocytes % (Manual) Monocytes % (Manual) Abs Neuts (Manual) Differential Comment Auto diff final Platelet Estimate Platelet Morphology RBC Morphology PT INR APTT Sodium Potassium Chloride Carbon Dioxide Anion Gap BUN Creatinine Estimated GFR Random Glucose Calcium Total Bilirubin AST ALT Alkaline Phosphatase Total Protein Albumin Urine Color Yellow Urine Clarity Cloudy H Urine pH 7.0 Ur Specific [place] 1.011 Urine Protein Negative Urine Glucose (UA) Negative Urine Ketones Trace H Urine Occult Blood Negative Urine Nitrate Negative Urine Bilirubin Negative Urine Urobilinogen Less than 2 Ur Leukocyte Esterase Negative Urine RBC 1 Amorphous Sediment Occasional H Urine Bacteria Occasional H Urine Mucus Few H Ur Microscopic Review Not Reportable Blood Type O Positive Blood Type Recheck Required Antibody Screen Negative 03/24/18 05:19 WBC RBC Hgb Hct MCV MCH MCHC RDW Plt Count MPV Prelim Diff (Auto) Neut % (Auto) Lymph % (Auto) [place] % (Auto) Eos % (Auto) Baso % (Auto) Neut # (Auto) Lymph # (Auto) [place] # (Auto) Eos # (Auto) Baso # (Auto) WBC Differential Seg Neuts % (Manual) Band Neuts % (Manual) Lymphocytes % (Manual) Monocytes % (Manual) Abs Neuts (Manual) Differential Comment Platelet Estimate Platelet Morphology RBC Morphology PT INR APTT Sodium 140 Potassium 4.1 Chloride 103 Carbon Dioxide 28.9 Anion Gap 8 BUN 17 Creatinine 0.78 Estimated GFR 71 L Random Glucose 115 H Calcium 9.0 D Total Bilirubin AST ALT Alkaline Phosphatase Total Protein Albumin Urine Color Urine Clarity Urine pH Ur Specific [place] Urine Protein Urine Glucose (UA) Urine Ketones Urine Occult Blood Urine Nitrate Urine Bilirubin Urine Urobilinogen Ur Leukocyte Esterase Urine RBC Amorphous Sediment Urine Bacteria Urine Mucus Ur Microscopic Review Blood Type Blood Type Recheck Antibody Screen - Imaging Impressions Hip X-Ray 03/23/18 19:37 CONCLUSION: Comminuted intratrochanteric fracture with varus angulation. Chest X-Ray 03/23/18 20:07 CONCLUSION: Interface in the upper lateral left chest probably represents a skinfold. Recommend performing an expiratory view of the chest to exclude pneumothorax. Chest X-Ray 03/23/18 20:56 CONCLUSION: No evidence of pneumothorax. Assessment and Plan - Assessment and Plan 1) Left Intertrochanteric hip Fx -npo -consents on chart -surgery today with Sherita for IMN left hip [id number]-[id number] Prescription Drug Monitoring Database has been queried and verified prior to prescribing the controlled substance. Acute pain exception. This patient has normal, predicted, physiological, and time limited response to an adverse mechanical stimulus associated with surgery, trauma, or acute illness as described in my notes. There is a lack of alternative treatment options other than to include the prescribed narcotic treatment for this condition.
[2018-03-24] MEDS: Metoprolol Tartrate 25 MG Tablet PO SCH (07:45)
[2018-03-24] MEDS ORDERED: Sodium Chloride 0.9% 2 ML Flush BID IV.FLUSH SCH (09:00)
[2018-03-24] MEDS ORDERED: Sodium Chlor 0.9% Inj 500 ML IV.CONT ONE (11:45)
[2018-03-24] MEDS ORDERED: Bupivacaine/Epinephrine Inj 0.25% 50 ML Vial ONE (11:56)
[2018-03-24] MEDS ORDERED: Post-op Orders (for Pharmacy) OTHER STA (12:24)
--- NOTE | 2018-03-24 12:30 | P.OP ---
- Preoperative Diagnosis (1) Closed intertrochanteric fracture of left femur Date of procedure: 03/24/18 Procedure: Left hip reduction and intramedullary nail fixation Anesthesia: GETA Surgeon: Tung wSartz MD [employer] Supervisor: CHRISTINE Kebede PA-C The surgical procedure was assisted by my physician political science research assistant. My P.A. presence was necessary throughout this case for the manipulation and positioning of the surgical extremity. My P.A. was assisting me throughout the duration of this procedure. The skill set of a physician political science research assistant was medically necessary to complete this procedure. During the surgical case the surgical aides teacher was working at the back table and the physician political science research assistant was directly assisting me. Operation and Findings: Implants used: Biomet 11 mm x 380 mm 125 degree troch nail Plan of activity: Weight-bear as tolerated Patient was seen and evaluated preoperatively. The patient has significant hip pain from proximal left intertrochanteric femur fracture. The risk and benefits of surgery were discussed in depth with the patient to include bleeding , infection, nonunion, malunion, need for hip replacement, painful hardware, as well as medical competitions including blood clots, stroke, heart attack, and . Informed consent was obtained. Operative site was marked. Patient was brought to the operating room and placed on fracture table. IV sedation was administered by anesthesiologist. Timeout procedure was performed. Hip and leg were prepped with alcohol followed by DuraPrep and draped in the usual sterile fashion. IV antibiotics were given prior to incision. Procedure began with reduction of fracture. Traction was applied. The leg was manipulated to achieve reduction. Excellent reduction was achieved. Fluoroscopy was used to confirm reduction. A three inch incision was made proximal to the trochanter. Subcutaneous tissue was dissected bluntly. Guidepin was placed at the tip of the trochanter and advanced into the femoral canal. Fluoroscopy confirmed appropriate guidepin placement. A opening reamer was placed over the guidepin. A long ball tipped guide pin was now placed down the femoral canal into the center of the distal femur. The nail length was now measured. Fluoroscopy confirmed appropriate guidepin placement. Flexible reamers were now passed over the guidepin to ream the intramedullary canal. The nail was attached to the insertion handle. Nail was now placed over the guidepin into the femoral canal. Fluoroscopy confirmed appropriate nail placement. A second incision was made over the lateral thigh. Cannulas were placed through the insertion handle down to the femur. Guidepin was now placed through the femoral nail into the center of the femoral head. Fluoroscopy confirmed appropriate guidepin placement. Screw length was measured. Cannulated drill was placed over the guidepin. Appropriate length lag screw was now placed. Traction was released and compression was applied. The set screw was now tightened in dynamic mode. Next, using perfect [place] technique a distal interlocking screw was placed. Screw holes were predrilled and screw lengths were measured. Final fluoroscopy revealed well aligned fracture with well-placed hardware. Incision was closed with 3-0 Vicryl and paul. Sterile dressings were applied. Patient was awakened and transferred to recovery room.
[2018-03-24] MEDS ORDERED: fentaNYL Citrate Inj 100 MCG/2 ML Ampul ONE (12:52)
--- NOTE | 2018-03-24 13:32 | P.PNOP ---
Subjective Interval history: Transferred to PACU in stable condition. Left intertrochanteric femur fracture status post IM nail Physical Exam Vital signs: Vital Signs 03/23/18 19:32 03/23/18 19:37 03/23/18 22:04 Temperature Pulse Rate 59 L 58 L 66 Respiratory Rate 16 16 18 Blood Pressure 186/72 H 186/72 H 162/70 H Pulse Oximetry 100 100 95 03/24/18 01:33 03/24/18 01:55 03/24/18 04:35 Temperature 98 F 98.9 F Pulse Rate 68 64 68 Respiratory Rate 22 18 18 Blood Pressure 134/77 145/64 H 122/54 L Pulse Oximetry 99 96 97 03/24/18 08:00 03/24/18 12:45 03/24/18 13:00 Temperature 98.3 F 98.4 F Pulse Rate 70 67 52 L Respiratory Rate 20 20 22 Blood Pressure 113/56 L 152/63 H 127/60 Pulse Oximetry 93 L 100 100 03/24/18 13:15 Temperature Pulse Rate 55 L Respiratory Rate 20 Blood Pressure 128/56 L Pulse Oximetry 100 Intake & Output 03/23/18 03/24/18 03/24/18 18:59 06:59 18:59 Weight 58.6 kg Other: Date of Last Bowel Movement 03/23/18 Weight On Admission 160 kg - Urinary Catheter Management Indwelling Urethral Catheter Cath placed during this visit: yes Reason for continuing: Hourly intake/output Insertion date: 03/23/18 Insertion time: 21:07 Results - Labs CBC & Chem 7: 03/24/18 05:19 03/24/18 05:19 Laboratory Results - last 24 hr 03/23/18 03/23/18 03/23/18 20:34 20:34 20:34 WBC 16.7 H RBC 3.61 L Hgb 11.5 L Hct 33.9 L MCV 94.1 MCH 32.0 MCHC 34.0 RDW 13.0 Plt Count 234 MPV 8.7 Prelim Diff (Auto) Slide review pending Neut % (Auto) 86.1 H Lymph % (Auto) 8.1 L [place] % (Auto) 5.5 Eos % (Auto) 0.1 Baso % (Auto) 0.2 Neut # (Auto) 14.4 H Lymph # (Auto) 1.4 [place] # (Auto) 0.9 Eos # (Auto) 0.0 Baso # (Auto) 0.0 WBC Differential Manual diff final Seg Neuts % (Manual) 78 H Band Neuts % (Manual) 8 H Lymphocytes % (Manual) 8 L Monocytes % (Manual) 6 Abs Neuts (Manual) 14.4 H Differential Comment . Platelet Estimate Normal Platelet Morphology Normal RBC Morphology Normal PT 11.4 INR 1.1 APTT 25.5 Sodium 139 Potassium 3.7 Chloride 103 Carbon Dioxide 26.9 Anion Gap 9 BUN 17 Creatinine 0.74 Estimated GFR 75 L Random Glucose 113 H Calcium 10.1 Total Bilirubin 0.6 AST 23 ALT 22 Alkaline Phosphatase 106 Total Protein 6.9 Albumin 3.9 Urine Color Urine Clarity Urine pH Ur Specific [place] Urine Protein Urine Glucose (UA) Urine Ketones Urine Occult Blood Urine Nitrate Urine Bilirubin Urine Urobilinogen Ur Leukocyte Esterase Urine RBC Amorphous Sediment Urine Bacteria Urine Mucus Ur Microscopic Review Blood Type Blood Type Recheck Antibody Screen 03/23/18 03/23/18 03/24/18 20:34 21:17 05:19 WBC 11.1 H RBC 3.10 L Hgb 10.1 L Hct 29.2 L MCV 94.5 MCH 32.6 MCHC 34.6 RDW 13.1 Plt Count 195 MPV 8.0 Prelim Diff (Auto) Neut % (Auto) 77.7 H Lymph % (Auto) 11.3 [place] % (Auto) 10.5 H Eos % (Auto) 0.2 Baso % (Auto) 0.3 Neut # (Auto) 8.6 H Lymph # (Auto) 1.3 [place] # (Auto) 1.2 H Eos # (Auto) 0.0 Baso # (Auto) 0.0 WBC Differential . Seg Neuts % (Manual) Band Neuts % (Manual) Lymphocytes % (Manual) Monocytes % (Manual) Abs Neuts (Manual) Differential Comment Auto diff final Platelet Estimate Platelet Morphology RBC Morphology PT INR APTT Sodium Potassium Chloride Carbon Dioxide Anion Gap BUN Creatinine Estimated GFR Random Glucose Calcium Total Bilirubin AST ALT Alkaline Phosphatase Total Protein Albumin Urine Color Yellow Urine Clarity Cloudy H Urine pH 7.0 Ur Specific [place] 1.011 Urine Protein Negative Urine Glucose (UA) Negative Urine Ketones Trace H Urine Occult Blood Negative Urine Nitrate Negative Urine Bilirubin Negative Urine Urobilinogen Less than 2 Ur Leukocyte Esterase Negative Urine RBC 1 Amorphous Sediment Occasional H Urine Bacteria Occasional H Urine Mucus Few H Ur Microscopic Review Not Reportable Blood Type O Positive Blood Type Recheck Required Antibody Screen Negative 03/24/18 05:19 WBC RBC Hgb Hct MCV MCH MCHC RDW Plt Count MPV Prelim Diff (Auto) Neut % (Auto) Lymph % (Auto) [place] % (Auto) Eos % (Auto) Baso % (Auto) Neut # (Auto) Lymph # (Auto) [place] # (Auto) Eos # (Auto) Baso # (Auto) WBC Differential Seg Neuts % (Manual) Band Neuts % (Manual) Lymphocytes % (Manual) Monocytes % (Manual) Abs Neuts (Manual) Differential Comment Platelet Estimate Platelet Morphology RBC Morphology PT INR APTT Sodium 140 Potassium 4.1 Chloride 103 Carbon Dioxide 28.9 Anion Gap 8 BUN 17 Creatinine 0.78 Estimated GFR 71 L Random Glucose 115 H Calcium 9.0 D Total Bilirubin AST ALT Alkaline Phosphatase Total Protein Albumin Urine Color Urine Clarity Urine pH Ur Specific [place] Urine Protein Urine Glucose (UA) Urine Ketones Urine Occult Blood Urine Nitrate Urine Bilirubin Urine Urobilinogen Ur Leukocyte Esterase Urine RBC Amorphous Sediment Urine Bacteria Urine Mucus Ur Microscopic Review Blood Type Blood Type Recheck Antibody Screen - Imaging Impressions Hip X-Ray 03/23/18 19:37 CONCLUSION: Comminuted intratrochanteric fracture with varus angulation. Chest X-Ray 03/23/18 20:07 CONCLUSION: Interface in the upper lateral left chest probably represents a skinfold. Recommend performing an expiratory view of the chest to exclude pneumothorax. Chest X-Ray 03/23/18 20:56 CONCLUSION: No evidence of pneumothorax. Assessment and Plan - Assessment and Plan 1) Left Intertrochanteric hip Fx status post IM nail POD 0 -Weightbearing as tolerated with physical therapy -Daily dressing changes beginning POD 2 with Xeroform and Prim[place] -Lovenox Incentive spirometry Case management for rehab placement Follow-up with Dr. Magallon or PA in 2 weeks
--- NOTE | 2018-03-24 14:36 | XR ---
EXAM DATE: 03/24/2018 2:32 PM EST AGE/SEX: 82 years / Female INDICATIONS: Left hip pinning. CLINICAL DATA: This is the patient's initial encounter. Patient reports that signs and symptoms have been present for 1 day and indicates a pain score of Nonresponsive. MEDICAL/SURGICAL HISTORY: Non-responsive. Non-responsive. COMPARISON: No prior exams available for comparison. FINDINGS: The examination demonstrates intramedullary brian placement in the left femur with dynamic compression screw placed across the patient's femoral neck fracture. Alignment of the fracture post fixation is e xcellent. CONCLUSION: Excellent alignment of the patient's fracture post fixation. Electronically signed by: Isidro Mims MD 03/24/2018 2:35 PM EST
--- NOTE | 2018-03-24 14:47 | ECG ---
Date Performed: 03/23/2018 Time Performed: 21:52:19 PTAGE: 82 years EKG: SINUS BRADYCARDIA BORDERLINE ECG Since the PREVIOUS TRACING , no significant change noted PREVIOUS TRACIN05/14/2013 12.53 DOCTOR: Aurora Galeana Interpretating Date/Time 03/24/2018 14:34:41
[2018-03-24] MEDS: Calcium/Vitamin D 250/125 MG Tablet PO SCH (15:06)
[2018-03-24] MEDS: amLODIPine 5 MG Tablet PO SCH (15:06)
[2018-03-24] MEDS: ceFAZolin 1 GM Premix Inj 1 GM/50 ML IV.SIG SCH (20:30)
[2018-03-24] MEDS: Senna/Docusate Sodium 8.6/50 MG Tablet PO SCH (21:55)
[2018-03-25] MEDS: Enoxaparin Inj 30 MG/0.3 ML Syringe SQ SCH (01:35)
[2018-03-25] MEDS: ceFAZolin 1 GM Premix Inj 1 GM/50 ML IV.SIG SCH ×2 (04:24→12:00)
[2018-03-25] MEDS: Levothyroxine 88 MCG Tablet PO SCH (06:50)
--- NOTE | 2018-03-25 08:09 | P.PNOP ---
Subjective Interval history: pain tolerable Physical Exam Vital signs: Vital Signs 03/24/18 12:45 03/24/18 13:00 03/24/18 13:15 Temperature 98.4 F Pulse Rate 67 52 L 55 L Respiratory Rate 20 22 20 Blood Pressure 152/63 H 127/60 128/56 L Pulse Oximetry 100 100 100 03/24/18 13:30 03/24/18 13:40 03/24/18 19:45 Temperature 97.9 F 97.5 F L Pulse Rate 65 62 68 Respiratory Rate 20 21 17 Blood Pressure 112/56 L 113/55 L 101/52 L Pulse Oximetry 100 100 98 03/24/18 23:20 03/25/18 03:50 Temperature 97.7 F 97.2 F L Pulse Rate 66 63 Respiratory Rate 17 18 Blood Pressure 114/54 L 112/52 L Pulse Oximetry 99 98 Intake & Output 03/24/18 03/25/18 03/25/18 18:59 06:59 18:59 Intake Total 1500 / 1500 770 / 770 Output Total 725 / 725 550 / 550 Balance 775 / 775 220 / 220 Weight 59 kg Intake: IV 1000 / 1000 50 / 50 NS Inj 1,000 ML @ 75 mls/hr IV. 1000 / 1000 CONT .[id number] [facility] Rx#:[id number] Ancef 1 GM Premix Inj 1 gm In 50 / 50 50 ml @ 100 mls/hr IV.SIG Q8H [facility] Rx#:[id number] Oral 720 / 720 Anesthesia Amount 500 / 500 Output: Estimated Blood Loss 100 / 100 Urine Amount (Catheter) 625 / 625 550 / 550 Indwelling Urethral Catheter 625 / 625 550 / 550 Other: Date of Last Bowel Movement 03/23/18 03/23/18 Narrative: in bed, nad dressing c/d/i tobin portillo nvi - Urinary Catheter Management Indwelling Urethral Catheter Cath placed during this visit: yes Reason for continuing: Hourly intake/output Insertion date: 03/23/18 Insertion time: 21:07 Results - Labs CBC & Chem 7: 03/24/18 05:19 03/24/18 05:19 - Imaging Impressions Femur X-Ray 03/24/18 00:00 CONCLUSION: Excellent alignment of the patient's fracture post fixation. Assessment and Plan - Ortho Post Op Day # 1 - Assessment and Plan 1) Left Intertrochanteric hip Fx status post IM nail POD 1 -Weightbearing as tolerated with physical therapy -Daily dressing changes beginning POD 2 with Xeroform and Prim[place] -Lovenox Incentive spirometry Case management for rehab placement - likely Tuesday Follow-up with Dr. Magallon or PA in 2 weeks
[2018-03-25] MEDS: Sod Chloride 0.9% Inj 1,000 ML IV.CONT SCH (08:13)
[2018-03-25] MEDS: Metoprolol Tartrate 25 MG Tablet PO SCH (09:01)
[2018-03-25] MEDS: Calcium/Vitamin D 250/125 MG Tablet PO SCH (09:02)
[2018-03-25] MEDS: amLODIPine 5 MG Tablet PO SCH (09:02)
[2018-03-25] MEDS: Senna/Docusate Sodium 8.6/50 MG Tablet PO SCH ×2 (09:02→20:57)
--- NOTE | 2018-03-25 11:00 | P.PN ---
Subjective Interval history: Follow up for left hip fracture s/p fixation, HTN/HLD. The patient reports continued pain throughout the left hip. She states she was able to ambulate last night however very painful. Has not yet attempted ambulation today. Denies any other medical complaints including no fever/chills, chest pain, shortness of breath, abdominal pain, or urinary complaints. She is currently on oxygen, does not wear oxygen at home although she believes she has underlying COPD. Denies any cough or shortness of breath. Physical Exam Vital signs: Vital Signs 03/24/18 12:45 03/24/18 13:00 03/24/18 13:15 Temperature 98.4 F Pulse Rate 67 52 L 55 L Respiratory Rate 20 22 20 Blood Pressure 152/63 H 127/60 128/56 L Pulse Oximetry 100 100 100 03/24/18 13:30 03/24/18 13:40 03/24/18 19:45 Temperature 97.9 F 97.5 F L Pulse Rate 65 62 68 Respiratory Rate 20 21 17 Blood Pressure 112/56 L 113/55 L 101/52 L Pulse Oximetry 100 100 98 03/24/18 23:20 03/25/18 03:50 03/25/18 08:00 Temperature 97.7 F 97.2 F L 97.6 F Pulse Rate 66 63 84 Respiratory Rate 17 18 18 Blood Pressure 114/54 L 112/52 L 148/55 H Pulse Oximetry 99 98 99 03/25/18 09:53 Temperature Pulse Rate Respiratory Rate Blood Pressure Pulse Oximetry 97 Intake & Output 03/24/18 03/25/18 03/25/18 18:59 06:59 18:59 Intake Total 1500 / 1500 1820 / 1820 Output Total 725 / 725 550 / 550 Balance 775 / 775 1270 / 1270 Weight 59 kg Intake: IV 1000 / 1000 1100 / 1100 NS Inj 1,000 ML @ 75 mls/hr IV. 1000 / 1000 1000 / 1000 CONT .[id number] [facility] Rx#:[id number] Ancef 1 GM Premix Inj 1 gm In 100 / 100 50 ml @ 100 mls/hr IV.SIG Q8H [facility] Rx#:[id number] Oral 720 / 720 Anesthesia Amount 500 / 500 Output: Estimated Blood Loss 100 / 100 Urine Amount (Catheter) 625 / 625 550 / 550 Indwelling Urethral Catheter 625 / 625 550 / 550 Other: Date of Last Bowel Movement 03/23/18 03/23/18 Narrative: GENERAL: Well-nourished, well-developed pleasant elderly female patient in [place]. SKIN: Warm and dry. No rash. HEENT: Normocephalic. Atraumatic. Pupils equal and round. Mucous membranes pink and moist. CARDIOVASCULAR: Regular rate and rhythm. No murmur appreciated. RESPIRATORY: No accessory muscle use. Clear to auscultation. Breath sounds equal bilaterally. GASTROINTESTINAL: Abdomen soft, non-tender, nondistended. Normoactive bowel sounds x4. MUSCULOSKELETAL: No obvious deformities. Extremities without clubbing, cyanosis , or edema. Left hip surgical dressing in place, CDI. NEUROLOGICAL: Awake and alert. No obvious cranial nerve deficits. Moving all extremities spontaneously. 5/5 plantar/dorsiflexion bilaterally. Normal speech. PSYCHIATRIC: Appropriate mood and affect; insight and judgment normal. - Urinary Catheter Management Indwelling Urethral Catheter Cath placed during this visit: yes Reason for continuing: Hourly intake/output Insertion date: 03/23/18 Insertion time: 21:07 Results - Labs CBC & Chem 7: 03/24/18 05:19 03/24/18 05:19 - Imaging Impressions Femur X-Ray 03/24/18 00:00 CONCLUSION: Excellent alignment of the patient's fracture post fixation. - Procedures Date of procedure: 03/24/18 Procedure: Left hip reduction and intramedullary nail fixation Anesthesia: JENNIFERA Surgeon: Tung Swartz MD Assessment and Plan - Plan 82-year-old female with a past medical history significant for hypothyroidism, hypertension, hyperlipidemia and COPD presents to the emergency department for evaluation of a fall with left hip pain. Left hip fracture: acute. S/p mechanical fall. -Hip x-ray reviewed, significant for comminuted intertrochanteric fracture of the left hip with varus angulation -Orthopedic surgery consulted -03/24 S/p Left hip reduction and intramedullary nail fixation by Dr. Swartz -Consult PT -WBAT LLE -Pain control with [place] prn, IV morphine prn, with bowel regimen -Lovenox for DVT prophylaxis -Case management to assist with discharge planning, likely needs rehab Hypertension/hyperlipidemia: chronic -Continue patient's norvasc 5mg daily, metoprolol 12.5mg po bid, and statin -Monitor BP, adjust antihypertensives as needed Tobacco abuse: chronic, patient continues to smoke. Possible underlying COPD, never formally diagnosed -Nicotine patch -Duonebs prn Hypothyroidism: chronic -continue patient's synthroid Leukocytosis: WBC 16.7 upon arrival, likely reactive to fracture/pain. No signs of infection. Afebrile. -given IVF hydration -monitor CBC, improving, WBC 11K today DVT Prophylaxis: Lovenox sq per ortho Discharge Planning: Plan for discharge to rehab when arranged by CM.
[2018-03-26] MEDS: Enoxaparin Inj 30 MG/0.3 ML Syringe SQ SCH (00:27)
[2018-03-26] MEDS: Levothyroxine 88 MCG Tablet PO SCH (05:46)
[2018-03-26 07:57] LABS: Baso % (Auto) 0.3 % (0.0-2.0); Eos # (Auto) 0.1 th/mm3 (0.0-0.4); Eos % (Auto) 1.1 % (0.0-4.0); Lymph # (Auto) 2.5 th/mm3 (1.0-4.8); Lymph % (Auto) 18.9 % (9.0-44.0); Mean Corpuscular HGB Conc 34.1 % (32.0-36.0); Mean Corpuscular Hemoglobin 32.5 pg (27.0-34.0); Mean Corpuscular Volume 95.5 fL (80.0-100.0); Mean Platelet Volume 8.5 fL (7.0-11.0); Mono # (Auto) 1.3 th/mm3 (0.0-0.9); Mono % (Auto) 9.9 % (0.0-8.0); Neut # (Auto) 9.1 th/mm3 (1.8-7.7); Neut % (Auto) 69.8 % (16.0-70.0); Platelet Count 154 th/mm3 (150-450); Red Blood Count 2.18 mil/mm3 (4.00-5.30); White Blood Count 13.1 th/mm3 (4.0-11.0)
[2018-03-26 08:08] LABS: Hematocrit 20.9 % (35.0-46.0); Hemoglobin 7.1 gm/dL (11.6-15.3)
[2018-03-26 08:22] LABS: Calcium 8.3 mg/dL (8.5-10.1); Carbon Dioxide 28.1 meq/L (21.0-32.0)
--- NOTE | 2018-03-26 08:23 | P.PNOP ---
Subjective Interval history: pain tolerable, dizziness. Physical Exam Vital signs: Vital Signs 03/25/18 09:53 03/25/18 12:00 03/25/18 16:00 Temperature 97.5 F L 98.4 F Pulse Rate 73 76 Respiratory Rate 18 18 Blood Pressure 101/50 L 94/54 L Pulse Oximetry 97 98 100 03/25/18 19:02 03/25/18 23:15 03/26/18 00:59 Temperature 98.3 F 97.9 F Pulse Rate 80 78 Respiratory Rate 17 17 Blood Pressure 106/51 L 130/60 Pulse Oximetry 96 96 97 03/26/18 03:55 03/26/18 07:59 Temperature 98.3 F Pulse Rate 92 H 92 H Respiratory Rate 17 Blood Pressure 125/57 L Pulse Oximetry 96 Intake & Output 03/25/18 03/26/18 03/26/18 18:59 06:59 18:59 Intake Total 480 / 480 360 / 360 Output Total 550 / 550 Balance 480 / 480 -190 / -190 Weight 71.4 kg Intake: Oral 480 / 480 360 / 360 Output: Urine 550 / 550 Other: # Voids 4 Date of Last Bowel Movement 03/23/18 03/23/18 03/26/18 # Bowel Movements 0 0 Narrative: in bed, nad dressing c/d/i tobin portillo nvi - Urinary Catheter Management Indwelling Urethral Catheter Cath placed during this visit: yes, but has since been removed by the nurse Reason for continuing: Decision to DC catheter Insertion date: 03/23/18 Insertion time: 21:07 Removal date: 03/26/18 Removal time: 04:55 Results - Labs CBC & Chem 7: 03/26/18 07:06 03/24/18 05:19 Laboratory Results - last 24 hr 03/26/18 07:06 WBC 13.1 H RBC 2.18 L Hgb 7.1 L Hct 20.9 L* MCV 95.5 MCH 32.5 MCHC 34.1 RDW 13.0 Plt Count 154 MPV 8.5 Neut % (Auto) 69.8 Lymph % (Auto) 18.9 [place] % (Auto) 9.9 H Eos % (Auto) 1.1 Baso % (Auto) 0.3 Neut # (Auto) 9.1 H Lymph # (Auto) 2.5 [place] # (Auto) 1.3 H Eos # (Auto) 0.1 Baso # (Auto) 0.0 WBC Differential . Differential Comment Auto diff final - Procedures Date of procedure: 03/24/18 Procedure: Left hip reduction and intramedullary nail fixation Anesthesia: GETA Surgeon: Tung Magallon MD Assessment and Plan - Ortho Post Op Day # 2 - Assessment and Plan 1) Left Intertrochanteric hip Fx status post IM nail POD 1 -Weightbearing as tolerated with physical therapy -Daily dressing changes beginning POD 2 with Xeroform and Primapore -Lovenox anemia - transfuse 2 units PRBC Incentive spirometry Case management for rehab placement - likely Tuesday Follow-up with Dr. Magallon or PA in 2 weeks
[2018-03-26] MEDS: Calcium/Vitamin D 250/125 MG Tablet PO SCH (08:52)
[2018-03-26] MEDS: Senna/Docusate Sodium 8.6/50 MG Tablet PO SCH ×2 (08:53→20:34)
[2018-03-26] MEDS: Metoprolol Tartrate 25 MG Tablet PO SCH (08:53)
[2018-03-26] MEDS: amLODIPine 5 MG Tablet PO SCH (08:53)
--- NOTE | 2018-03-26 09:03 | P.PN ---
Subjective Interval history: Follow up for left hip fracture s/p fixation, HTN/HLD, anemia. Patient's hemoglobin dropped to 7.1 today. Patient endorses some lightheadedness, worse upon standing. Denies any fevers/chills, chest pain, shortness of breath, or abdominal complaints. She agrees to blood transfusion. No other medical complaints at this time. Hoping to go to rehab tomorrow. Physical Exam Vital signs: Vital Signs 03/25/18 09:53 03/25/18 12:00 03/25/18 16:00 Temperature 97.5 F L 98.4 F Pulse Rate 73 76 Respiratory Rate 18 18 Blood Pressure 101/50 L 94/54 L Pulse Oximetry 97 98 100 03/25/18 19:02 03/25/18 23:15 03/26/18 00:59 Temperature 98.3 F 97.9 F Pulse Rate 80 78 Respiratory Rate 17 17 Blood Pressure 106/51 L 130/60 Pulse Oximetry 96 96 97 03/26/18 03:55 03/26/18 07:59 Temperature 98.3 F Pulse Rate 92 H 92 H Respiratory Rate 17 Blood Pressure 125/57 L Pulse Oximetry 96 Intake & Output 03/25/18 03/26/18 03/26/18 18:59 06:59 18:59 Intake Total 480 / 480 360 / 360 Output Total 550 / 550 Balance 480 / 480 -190 / -190 Weight 71.4 kg Intake: Oral 480 / 480 360 / 360 Output: Urine 550 / 550 Other: # Voids 4 Date of Last Bowel Movement 03/23/18 03/23/18 03/26/18 # Bowel Movements 0 0 Narrative: GENERAL: Well-nourished, well-developed pleasant elderly female patient in [facility]. SKIN: Warm and dry. No rash. HEENT: Normocephalic. Atraumatic. Pupils equal and round. Mucous membranes pink and moist. CARDIOVASCULAR: Regular rate and rhythm. No murmur appreciated. RESPIRATORY: No accessory muscle use. Clear to auscultation. Breath sounds equal bilaterally. GASTROINTESTINAL: Abdomen soft, non-tender, nondistended. Normoactive bowel sounds x4. MUSCULOSKELETAL: No obvious deformities. Extremities without clubbing, cyanosis , or edema. Left hip surgical dressing in place, CDI. NEUROLOGICAL: Awake and alert. No obvious cranial nerve deficits. Moving all extremities spontaneously. 5/5 plantar/dorsiflexion bilaterally. Normal speech. PSYCHIATRIC: Appropriate mood and affect; insight and judgment normal. - Urinary Catheter Management Indwelling Urethral Catheter Cath placed during this visit: yes, but has since been removed by the nurse Reason for continuing: Decision to DC catheter Insertion date: 03/23/18 Insertion time: 21:07 Removal date: 03/26/18 Removal time: 04:55 Results - Labs CBC & Chem 7: 03/26/18 07:06 03/26/18 07:06 Laboratory Results - last 24 hr 03/26/18 03/26/18 07:06 07:06 WBC 13.1 H RBC 2.18 L Hgb 7.1 L Hct 20.9 L* MCV 95.5 MCH 32.5 MCHC 34.1 RDW 13.0 Plt Count 154 MPV 8.5 Neut % (Auto) 69.8 Lymph % (Auto) 18.9 [place] % (Auto) 9.9 H Eos % (Auto) 1.1 Baso % (Auto) 0.3 Neut # (Auto) 9.1 H Lymph # (Auto) 2.5 [place] # (Auto) 1.3 H Eos # (Auto) 0.1 Baso # (Auto) 0.0 WBC Differential . Differential Comment Auto diff final Sodium 140 Potassium 4.0 Chloride 106 Carbon Dioxide 28.1 Anion Gap 6 BUN 20 H Creatinine 0.80 Estimated GFR 69 L Random Glucose 95 Calcium 8.3 L - Imaging Hip X-Ray 03/23/18 19:37 CONCLUSION: Comminuted intratrochanteric fracture with varus angulation. Chest X-Ray 03/23/18 20:07 CONCLUSION: Interface in the upper lateral left chest probably represents a skinfold. Recommend performing an expiratory view of the chest to exclude pneumothorax. Chest X-Ray 03/23/18 20:56 CONCLUSION: No evidence of pneumothorax. Femur X-Ray 03/24/18 00:00 CONCLUSION: Excellent alignment of the patient's fracture post fixation. - Procedures Date of procedure: 03/24/18 Procedure: Left hip reduction and intramedullary nail fixation Anesthesia: GETA Surgeon: Tung Swartz MD Assessment and Plan - Plan 82-year-old female with a past medical history significant for hypothyroidism, hypertension, hyperlipidemia and COPD presents to the emergency department for evaluation of a fall with left hip pain. Left hip fracture: acute. S/p mechanical fall. -Hip x-ray reviewed, significant for comminuted intertrochanteric fracture of the left hip with varus angulation -Orthopedic surgery consulted -03/24 S/p Left hip reduction and intramedullary nail fixation by Dr. Swartz -Consult PT -WBAT LLE -Pain control with [place] prn, IV morphine prn, with bowel regimen -Lovenox for DVT prophylaxis -Case management to assist with discharge planning, likely needs rehab Acute Normocytic Anemia: acute, suspect secondary to blood loss -Hgb trended 11.5 --> 10.1 --> 7.1 -ordered 2u pRBC transfusion today, patient agrees -add on iron studies to am labs -repeat CBC in am Hypertension/hyperlipidemia: chronic -Continue patient's norvasc 5mg daily, metoprolol 12.5mg po bid, and statin -Monitor BP, adjust antihypertensives as needed Tobacco abuse: chronic, patient continues to smoke. Possible underlying COPD, never formally diagnosed -Nicotine patch -need to wean off oxygen prior to discharge Hypothyroidism: chronic -continue patient's synthroid Leukocytosis: WBC 16.7 upon arrival, likely reactive to fracture/pain. No signs of infection. Afebrile. -given IVF hydration -monitor CBC, improving DVT Prophylaxis: Lovenox sq per ortho Discharge Planning: Plan for discharge to rehab when arranged by CM. Receiving blood transfusion today. Hopefully discharge 03/27.
[2018-03-26] MEDS ORDERED: Sodium Chlor 0.9% Inj 250 ML IV.SIG SCH (10:00)
[2018-03-26 10:47] LABS: % Iron Saturation 9.8 % (20-50); Folate 14.7 ng/mL (3.1-17.5)
[2018-03-27] MEDS: Enoxaparin Inj 30 MG/0.3 ML Syringe SQ SCH (01:26)
[2018-03-27] MEDS: Levothyroxine 88 MCG Tablet PO SCH (05:20)
[2018-03-27 06:11] LABS: Baso # (Auto) 0.1 th/mm3 (0.0-0.2); Baso % (Auto) 0.5 % (0.0-2.0); Eos # (Auto) 0.1 th/mm3 (0.0-0.4); Eos % (Auto) 1.1 % (0.0-4.0); Hematocrit 32.7 % (35.0-46.0); Hemoglobin 11.1 gm/dL (11.6-15.3); Lymph # (Auto) 1.4 th/mm3 (1.0-4.8); Lymph % (Auto) 10.9 % (9.0-44.0); Mean Corpuscular Hemoglobin 31.2 pg (27.0-34.0); Mean Corpuscular Volume 91.8 fL (80.0-100.0); Mean Platelet Volume 8.3 fL (7.0-11.0); Mono # (Auto) 1.4 th/mm3 (0.0-0.9); Mono % (Auto) 10.8 % (0.0-8.0); Neut # (Auto) 9.9 th/mm3 (1.8-7.7); Neut % (Auto) 76.7 % (16.0-70.0); Platelet Count 173 th/mm3 (150-450); Red Blood Count 3.56 mil/mm3 (4.00-5.30); Red Cell Distribution Width 14.4 % (11.6-17.2); White Blood Count 12.9 th/mm3 (4.0-11.0)
--- NOTE | 2018-03-27 06:20 | P.PNOP ---
Subjective Interval history: s/p IMN left hip doing well. pain controlled. out of bed with therapy Physical Exam Vital signs: Vital Signs 03/26/18 07:59 03/26/18 08:00 03/26/18 12:00 Temperature 98.0 F 98.0 F Pulse Rate 92 H 82 74 Respiratory Rate 12 14 Blood Pressure 129/62 127/60 Pulse Oximetry 100 98 03/26/18 13:55 03/26/18 16:00 03/26/18 17:52 Temperature 98 F 98.4 F 98 F Pulse Rate 74 78 78 Respiratory Rate 14 14 14 Blood Pressure 127/60 141/61 H 141/61 H Pulse Oximetry 98 99 99 03/26/18 19:23 03/26/18 21:36 03/26/18 23:00 Temperature 98.7 F 98.5 F 98.5 F Pulse Rate 88 86 84 Respiratory Rate 17 18 17 Blood Pressure 124/57 L 145/66 H 157/67 H Pulse Oximetry 95 97 96 03/27/18 03:27 Temperature 98.8 F Pulse Rate 88 Respiratory Rate 18 Blood Pressure 150/68 H Pulse Oximetry 96 Intake & Output 03/26/18 03/26/18 03/27/18 06:59 18:59 06:59 Intake Total 360 / 360 480 / 480 460 / 460 Output Total 550 / 550 600 / 600 Balance -190 / -190 -120 / -120 460 / 460 Weight 71.4 kg 71.4 kg Intake: Oral 360 / 360 480 / 480 360 / 360 Intake (Blood Product) Amt 0 / 0 100 / 100 Rbc As-3 Leukoreduced Unit 0 / 0 100 / 100 [id number] Rbc As-3 Leukoreduced Unit 0 / 0 [id number] Output: Urine 550 / 550 600 / 600 Other: # Voids 3 Date of Last Bowel Movement 03/23/18 03/26/18 03/27/18 # Bowel Movements 0 1 Narrative: LLE: dressings clean and dry. intact. NVI - Urinary Catheter Management Indwelling Urethral Catheter Cath placed during this visit: yes, but has since been removed by the nurse Reason for continuing: Decision to DC catheter Insertion date: 03/23/18 Insertion time: 21:07 Removal date: 03/26/18 Removal time: 04:55 Results - Labs CBC & Chem 7: 03/27/18 04:47 03/26/18 07:06 Laboratory Results - last 24 hr 03/26/18 03/26/18 03/26/18 07:06 07:06 07:06 WBC 13.1 H RBC 2.18 L Hgb 7.1 L Hct 20.9 L* MCV 95.5 MCH 32.5 MCHC 34.1 RDW 13.0 Plt Count 154 MPV 8.5 Neut % (Auto) 69.8 Lymph % (Auto) 18.9 Stephens % (Auto) 9.9 H Eos % (Auto) 1.1 Baso % (Auto) 0.3 Neut # (Auto) 9.1 H Lymph # (Auto) 2.5 Stephens # (Auto) 1.3 H Eos # (Auto) 0.1 Baso # (Auto) 0.0 WBC Differential . Differential Comment Auto diff final Sodium 140 Potassium 4.0 Chloride 106 Carbon Dioxide 28.1 Anion Gap 6 BUN 20 H Creatinine 0.80 Estimated GFR 69 L Random Glucose 95 Calcium 8.3 L Iron 20 L TIBC 204 L % Saturation 9.8 L Ferritin 164 Vitamin B12 1081 H Folate 14.7 Blood Type Antibody Screen MTS Gel Crossmatch 03/26/18 03/27/18 11:30 04:47 WBC 12.9 H RBC 3.56 L Hgb 11.1 L D Hct 32.7 L MCV 91.8 D MCH 31.2 MCHC 34.0 RDW 14.4 Plt Count 173 MPV 8.3 Neut % (Auto) 76.7 H Lymph % (Auto) 10.9 Stephens % (Auto) 10.8 H Eos % (Auto) 1.1 Baso % (Auto) 0.5 Neut # (Auto) 9.9 H Lymph # (Auto) 1.4 Stephens # (Auto) 1.4 H Eos # (Auto) 0.1 Baso # (Auto) 0.1 WBC Differential . Differential Comment Auto diff final Sodium Potassium Chloride Carbon Dioxide Anion Gap BUN Creatinine Estimated GFR Random Glucose Calcium Iron TIBC % Saturation Ferritin Vitamin B12 Folate Blood Type O Positive Antibody Screen Negative MTS Gel Crossmatch See Detail - Procedures Date of procedure: 03/24/18 Procedure: Left hip reduction and intramedullary nail fixation Anesthesia: GETA Surgeon: Tung Swartz MD Assessment and Plan - Assessment and Plan 1) Left Intertrochanteric hip Fx status post IM nail POD 3 -Weightbearing as tolerated with physical therapy -Daily dressing changes beginning POD 2 with Xeroform and Primapore -Lovenox anemia - transfuse 2 units PRBC Incentive spirometry Case management for rehab placement ortho cleared for DC Follow-up with Dr. Swartz or PA in 2 weeks [employer] Prescription Drug Monitoring Database has been queried and verified prior to prescribing the controlled substance. Acute pain exception. This patient has normal, predicted, physiological, and time limited response to an adverse mechanical stimulus associated with surgery, trauma, or acute illness as described in my notes. There is a lack of alternative treatment options other than to include the prescribed narcotic treatment for this condition.
[2018-03-27 06:26] LABS: Anion Gap 8 meq/L (5-15); Blood Urea Nitrogen 17 mg/dL (7-18); Calcium 8.5 mg/dL (8.5-10.1); Carbon Dioxide 26.5 meq/L (21.0-32.0); Chloride 105 meq/L (98-107); Glomerular Filtration Rate Greater Than 89 mL/min (>89); Glucose,Random 108 mg/dL (74-106); Potassium 3.4 meq/L (3.5-5.1); Sodium 139 meq/L (136-145)
[2018-03-27] MEDS: Metoprolol Tartrate 25 MG Tablet PO SCH (09:00)
[2018-03-27] MEDS: Calcium/Vitamin D 250/125 MG Tablet PO SCH (09:00)
[2018-03-27] MEDS: amLODIPine 5 MG Tablet PO SCH (09:00)
[2018-03-27 09:01] VITALS: RESP 16
[2018-03-27] MEDS: Senna/Docusate Sodium 8.6/50 MG Tablet PO SCH (09:01)
[2018-03-27] MEDS ORDERED: Influenza (Quadrivalent) Vaccine 0.5 ML Syringe IM ONE (16:00)
--- NOTE | 2018-03-27 17:25 | P.DS ---
DS: Providers Date of admission: 03/23/18 22:11 Primary care physician: Josiah Bush MD Consults: 03/23/18 20:31 Consult to Orthopedic Surgery Routine Consulting Provider: Enedina Ruvalcaba Furniture Manager:: Enedina Ruvalcaba Reason for Consultation: left hip fracture Notified:: Service Spoke with:: Yisel Date Notified:: 03/23/18 Time Notified:: 20:49 Ordering Provider: JOSÉ MIGUEL 03/23/18 23:13 HUB Only Consult Order Routine Consulting Provider: Joaquin Nuñez 03/24/18 10:14 HUB Only Consult Order Routine Consulting Provider: [facility],Agency Brief History from admission: 82-year-old female with a past medical history significant for hypothyroidism, hypertension, hyperlipidemia and COPD presents to the emergency department for evaluation of a fall. The patient reports that she was standing on a step stool when she slipped and fell and landed on her hip. She denies any head trauma or loss of consciousness. No syncopal event. No chest pain or shortness of breath. No abdominal pain. No nausea/vomiting/diarrhea. No focal neurologic deficits. No fever/chills. DS: Diagnosis Discharge Diagnosis (1) Closed intertrochanteric fracture of left femur: Status: Acute Diagnosis: Principal (2) Acute blood loss anemia: Status: Acute Diagnosis: Principal (3) Hypertension: Status: Chronic Diagnosis: Secondary (4) Dyslipidemia: Status: Chronic Diagnosis: Secondary (5) Tobacco use: Status: Chronic Diagnosis: Secondary (6) Hypothyroidism: Status: Chronic Diagnosis: Secondary (7) Leukocytosis: Status: Acute Diagnosis: Principal DS: Summary Patient was admitted under the care of the hospitalist service. X-ray of the left hip was significant for comminuted intertrochanteric fracture of the left hip with varus angulation. Orthopedic surgery was consulted and patient was seen by DR Jerome with recommendation for left hip reduction and intramedullary nail fixation. Risks, benefits vs alternatives of surgery were discussed in detail with patient per Orthopedic Surgery and patient consented to surgery. Patient underwent surgery 03/24/[address] Magallon and tolerated the procedure well. She was started on Lovenox SQ for VTE prophylaxis post operatively and transitioned to Xarelto 10 mg daily by mouth at time of discharge to rehab. Physical therapy was consulted and Ortho recommended weight bearing as tolerated. Daily dressing changes with Xeroform and Primapore were started POD 2 as ordered per Ortho. Patients hemoglobin dropped from 11.5 down to 7.1 which was likely secondary to acute blood loss anemia post surgery. Patient was transfused 2 units of PRBC's. Patient's hemoglobin was 11.12 post transfusion and remained stable. Patient was cleared for discharge to rehab from Ortho standpoint. She was hemodynamically stable at time of discharge. Case management was consulted for assistance with placement. Follow up instructions with PCP and Tumbler Drier Operator Dr Magallon were provided to patient. She agreed to schedule all necessary follow up appointments. Status at Discharge Functional status at discharge: uses cane/walker Overall status at discharge: patient is progressing back to baseline Time Spent with Patient Total time spent providing and/or coordinating discharge services: Less than 30 minutes Quality: VTE Deep Vein Thrombosis/Pulmonary Embolism Present on Admission: No Exam Narrative Exam Narrative: GENERAL: no acute distress, well developed, well nourished SKIN: warm and dry HEAD: atraumatic, normocephalic. EYES: Pupils equal and round. No scleral icterus. No injection or drainage. ENT: No nasal bleeding or discharge. Mucous membranes pink and moist. NECK: Trachea midline. No JVD. CARDIOVASCULAR: Regular rate and rhythm. RESPIRATORY: No accessory muscle use. Clear to auscultation. Breath sounds equal bilaterally. GASTROINTESTINAL: Abdomen soft, non-tender, nondistended. MUSCULOSKELETAL: Extremities without clubbing, cyanosis, or edema. No obvious deformities. Left hip surgical dressing clean, dry and intact. NEUROLOGICAL: Awake and alert. No obvious cranial nerve deficits. Motor grossly within normal limits. Normal speech. PSYCHIATRIC: Appropriate mood and affect; insight and judgment normal. Results Procedures completed during hospitalization: Date of procedure: 03/24/18 Procedure: Left hip reduction and intramedullary nail fixation Anesthesia: GETA Surgeon: Tung Magallon MD Labs on day of discharge: Labs from last 24 hours 03/27/18 03/27/18 03/26/18 04:47 04:47 11:30 WBC 12.9 H RBC 3.56 L Hgb 11.1 L D Hct 32.7 L MCV 91.8 D MCH 31.2 MCHC 34.0 RDW 14.4 Plt Count 173 MPV 8.3 Neut % (Auto) 76.7 H Lymph % (Auto) 10.9 Cannon % (Auto) 10.8 H Eos % (Auto) 1.1 Baso % (Auto) 0.5 Neut # (Auto) 9.9 H Lymph # (Auto) 1.4 Cannon # (Auto) 1.4 H Eos # (Auto) 0.1 Baso # (Auto) 0.1 WBC Differential . Differential Comment Auto diff final Sodium 139 Potassium 3.4 L Chloride 105 Carbon Dioxide 26.5 Anion Gap 8 BUN 17 Creatinine 0.59 Estimated GFR Greater than 89 Random Glucose 108 H Calcium 8.5 Blood Type O Positive Antibody Screen Negative MTS Gel Crossmatch See Detail Impressions ITS Impressions Hip X-Ray 03/23/18 19:37 CONCLUSION: Comminuted intratrochanteric fracture with varus angulation. Chest X-Ray 03/23/18 20:56 CONCLUSION: No evidence of pneumothorax. Femur X-Ray 03/24/18 00:00 CONCLUSION: Excellent alignment of the patient's fracture post fixation. Discharge Plan Discharge Disposition Patient Disposition: Discharge to SNF Discharge Condition Condition: Good Discharge Order Discharge Orders: Discharge Order (Routine); Ordered 03/27/18 Ordered By: Aura Ivey Orthopedic Clear for Discharge (Routine); Ordered 03/27/18 Ordered By: Lopez Jerome Discharge Details Anticipated Discharge Date: 03/27/18 Physicians Team ED Provider: Param Dumont ED Midlevel Provider: Erika Nails Primary Care Provider: Josiah Bush Attending Provider: Tj Mitchell Other Providers: Enedina Ruvalcaba ; Joaquin Nuñez ; Tung Magallon ; [facility] Rxs /Orders / Referrals /Forms Prescriptions: New hydrocodone-acetaminophen [Forman] 7.5-325 mg Tablet 1 tab PO Q4H Qty: 40 RF: 0 rivaroxaban [Xarelto] 10 mg Tablet 10 mg PO DAILY Qty: 14 RF: 0 sennosides-docusate sodium [Senna Plus] 8.6-50 mg Tablet 2 tab PO BID Qty: 60 RF: 0 Continue atorvastatin 10 mg Tablet 10 mg PO DAILY RF: 0 amlodipine 5 mg Tablet 5 mg PO DAILY RF: 0 levothyroxine 88 mcg Tablet 88 mcg PO DAILY RF: 0 aspirin 81 mg Tablet,Chewable 81 mg PO DAILY RF: 0 metoprolol tartrate 25 mg Tablet 12.5 mg PO DAILY RF: 0 calcium carbonate-vitamin D3 [Calcium 500 + D] 500 mg(1,250mg) -200 unit Tablet 500 mg PO DAILY RF: 0 Ambulatory Orders / Order Sets / DME: Walker Folding (Routine) Location: Determined by Patient Ordered By: Lopez Jerome Referrals: Josiah Bush MD [Primary Care Provider] - See Instructions ( Please call the physician's office to book the appointment to be seen within 2-3 days.) Tung Magallon MD [Physician] - See Instructions (2 weeks) Discharge Instructions Patient Printed Instructions: Hydrocodone/Acetaminophen (By mouth), Laxative, Stool Softeners (By mouth), Rivaroxaban (By mouth), How to Choose and Use a Walker (GEN), Fall Prevention (ED), ORIF of Hip Fracture (DC) Additional Instructions: Follow up as directed Weight bearing as tolerated Prescriptions given at time of discharge Daily dressing change. Keep dressing dry and intact Status ED Status: Left Department
[2018-03-27 17:32] VITALS: TEMP 98
[2018-03-27 17:33] VITALS: BP 123/62; PULSE 84; O2SAT 95
== END 2018-03-27 19:38 ==
LOC: NEPE 19:24 → NEDA 22:11 → N06 03-24 02:23
PROVIDERS: ADMIT Internal Medicine; ATTEND Internal Medicine
DX: E78.00 Pure hypercholesterolemia, unspecified; Y92.009 Unspecified place in unspecified non-institutional (private) residence as the place of occurrence of the external cause; D62 Acute posthemorrhagic anemia; E78.5 Hyperlipidemia, unspecified; J43.9 Emphysema, unspecified; S72.142A Displaced intertrochanteric fracture of left femur, initial encounter for closed fracture; I10 Essential (primary) hypertension; D72.829 Elevated white blood cell count, unspecified; M81.0 Age-related osteoporosis without current pathological fracture; E03.9 Hypothyroidism, unspecified; M19.90 Unspecified osteoarthritis, unspecified site; F17.210 Nicotine dependence, cigarettes, uncomplicated; Z23 Encounter for immunization; W11.XXXA Fall on and from ladder, initial encounter; I35.1 Nonrheumatic aortic (valve) insufficiency